=== PATIENT | female | born 1985 | race Caucasian/White ===

== ENCOUNTER 2016-05-16 14:25 | Emergency (ER) | payer OTHER ==
--- NOTE | 2016-05-16 17:54 | ED ---
Headache - HPI Summary HPI Summary: Pt here w/ MATTHEWS. lives in [facility] and she noticed the beginnings of a mild MATTHEWS last night while Skyping then went to bed. Woke w/ a much worse MATTHEWS this morning. Headache feels like pressure over the top of her head. Also noticed she 's not as coordinated past 2 days - dropped a coffee bag, knocked something over on the counter, etc. Feels like her brain is pushing up against her skull inside. Denies recent injury or illness although states she felt sick over the weekend (ie. tired, chills, run down - took a 3 hour nap which she never does). Had eaten fish that was in the freezer for a long time prior to this starting. Also had guests over but does not know if any of them were sick. Has a shrimp allergy but no known exposure to shrimp as of late. Denies visual change, vertigo, photophobia, tinnitus, neck pain, fever, chills, N/V/D, chest pain, cough, rhinorrhea, ST, otalgia, ab pain, urinary/vaginal sx, rash. She is UTD w / imms. No h/o MATTHEWS's. Not a smoker, not on OBC, no recent travel and no bleeding/ clotting d/o's. Tried ASA and advil this morning w/o relief. Does not feel she' s stressed or sleep deprived. - History Of Current Complaint Chief Complaint: EDHeadache Stated Complaint: HEADACHE Time Seen by Provider: 05/16/16 17:33 Hx Obtained From: Patient - Allergies/Home Medications Allergies/Adverse Reactions: Allergies Allergy/AdvReac Type Severity Reaction Status Date / Time Shellfish Allergy Allergy breathing Verified 05/19/16 11:37 difficulty PMH/Surg Hx/FS Hx/Imm Hx Previously Healthy: Yes Endocrine/Hematology History: Denies: Hx Anticoagulant Therapy, Hx Blood Disorders, Hx Thyroid Disease, Hx Anemia, Hx Unexplained Bleeding Cardiovascular History: Denies: Hx Aneurysm, Hx Congenital Heart Disease Respiratory History: Denies: Hx Sleep Apnea Musculoskeletal History: Denies: Hx Arthritis Neurological History: Denies: Hx Headaches, Hx Migraine Infectious Disease History: No Infectious Disease History: Denies: Traveled Outside the [place] in Last 30 Days - Family History Known Family History: Positive: None - Social History Occupation: Student Lives: Alone Alcohol Use: Rare Hx Substance Use: No Substance Use Type: Reports: None Hx Tobacco Use: No Smoking Status (MU): Never Smoked Tobacco Review of Systems Constitutional: Negative Eyes: Negative ENT: Negative Cardiovascular: Negative Respiratory: Negative Gastrointestinal: Negative Genitourinary: Negative Musculoskeletal: Negative Skin: Negative Positive: Headache - see HPI. Negative: Weakness, Paresthesia, Numbness, Syncope, Slurred Speech Psychological: Normal All Other Systems Reviewed And Are Negative: Yes Physical Exam Triage Information Reviewed: Yes Vital Signs On Initial Exam: Initial Vitals Temp Pulse Resp BP Pulse Ox 97.2 F 78 18 110/64 100 05/16/16 14:28 05/16/16 14:28 05/16/16 14:28 05/16/16 14:28 05/16/16 14:28 Vital Signs Reviewed: Yes Appearance: Positive: Well-Appearing, Pain Distress, Thin Skin: Positive: Warm, Dry Head/Face: Positive: Normal Head/Face Inspection - NTTP Eyes: Positive: Normal, EOMI, KIRSTIE - no photophobia, Conjunctiva Clear ENT: Positive: Normal ENT inspection, Hearing grossly normal, Pharynx normal, TMs normal. Negative: Nasal congestion, Nasal drainage, Tonsillar swelling, Tonsillar exudate Dental: Negative: Abscess @ Neck: Positive: Supple, Nontender, No Lymphadenopathy Respiratory/Lung Sounds: Positive: Clear to Auscultation, Breath Sounds Present. Negative: Rales, Rhonchi, Wheezes Cardiovascular: Positive: Normal, RRR, Pulses are Symmetrical in both Upper and Lower Extremities, S1, S2. Negative: Murmur Abdomen Description: Positive: Nontender, No Organomegaly, Soft Bowel Sounds: Positive: Present Musculoskeletal: Positive: Normal, Strength/ROM Intact Neurological: Positive: Normal, Sensory/Motor Intact, Alert, Oriented to Person Place, Time, CN Intact II-III, Finger to Nose - normal, Facial Symmetry, Speech Normal Psychiatric: Positive: Normal - Cezar Coma Scale Coma Scale Total: 15 Diagnostics - Vital Signs Vital Signs Temp Pulse Resp BP Pulse Ox 05/16/16 15:43 98.5 F 77 16 108/69 100 05/16/16 14:28 97.2 F 78 18 110/64 100 - Laboratory Result Diagrams: 05/16/16 18:00 05/16/16 18:00 Lab Statement: Any lab studies that have been ordered have been reviewed, and results considered in the medical decision making process. Re-Evaluation - Re-Evaluation First Eval Change: Improved Headache Course/Dx - Diagnoses Provider Diagnoses: GENERAL HEADACHE Discharge - Discharge Plan Condition: Stable Disposition: HOME Patient Education Materials: General Headache (ED) Referrals: TRAVIS Pineda [Medical Doctor] - No Primary Care Phys,NOPCP [Primary Care Provider] - Additional Instructions: You may continue to try acetaminophen 650mg every 6 hours alternating with ibuprofen 600mg every 6 hours (take with food). Rest, ice, stay hydrated and avoid strong smells, loud sounds and bright lights as well as screen time. Follow-up with PCP this week if symptoms persist. *If headache worsens and/or you develop vomiting, photosensitivity, tinnitus, visual change, dizziness, weakness, change in speech or behavior, return to ED
[2016-05-16] MEDS ORDERED: Ketorolac INJ* 30 MG/ML 1 ML VIAL IV PUSH ONE (17:59)
[2016-05-16] MEDS ORDERED: NS 0.9% 1000 ML* 1,000 ML IV ONE (17:59)
[2016-05-16] MEDS ORDERED: PROCHLORPERAZINE INJ 5 MG/ML 2 ML VIAL IV PRN (17:59)
[2016-05-16] MEDS ORDERED: diPHENhydraMINE IV* 50 MG/ML 1 ml VIAL (BENADRYL) IV ONE (18:01)
[2016-05-16 18:24] LABS: Hematocrit 39 % (35-47); Hemoglobin 13.3 g/dl (12.0-16.0); Mean Corpuscular HGB Conc 34 g/dl (31-36); Mean Corpuscular Hemoglobin 29 pg (27-31); Mean Corpuscular Volume 85 fL (80-97); Mean Platelet Volume 8 um3 (7.4-10.4); Red Blood Count 4.65 10^6/ul (4.0-5.4); Red Cell Distribution Width 13 % (10.5-15); White Blood Count 4.2 10^3/ul (3.5-10.8)
[2016-05-16 18:36] LABS: Urine Bilirubin Negative (Negative); Urine Glucose Negative (Negative); Urine Nitrite Negative (Negative)
[2016-05-16 18:41] LABS: ALT 12 U/L (7-52); AST 16 U/L (13-39); Albumin 4.6 g/dL (3.2-5.2); Alkaline Phosphatase 44 U/L (34-104); Anion Gap 6 mmol/L (2-11); BUN/Creatinine Ratio 12.9 (8-20); Blood Urea Nitrogen 8 mg/dL (6-24); CO2 Carbon Dioxide 29 mmol/L (22-32); Calcium 9.2 mg/dL (8.6-10.3); Chloride 105 mmol/L (101-111); EGFR African American 144.4 (>60); EGFR Non-African American 112.3 (>60); Globulin 2.5 g/dL (2-4); Glucose 74 mg/dL (70-100); Potassium 3.7 mmol/L (3.5-5.0); Sodium 140 mmol/L (133-145); Total Protein 7.1 g/dL (6.4-8.9)
[2016-05-16 20:20] VITALS: BP 103/53
== END 2016-05-16 20:19 | disposition home or self-care (01) ==
LOC: ED 14:25
DX: R51 Headache (principal)
CPT/HCPCS: 36415; 80053; 81003; 84702; 85025; 96374; 96375; 99283; J1200; J1885